=== PATIENT | male | born 1960 | race Hispanic/Latino ===

== ENCOUNTER 2016-02-17 08:38 | Day surgery (SDC) | payer OTHER ==
[~2016-02-17 08:38] MED LIST: ANCEF/STERILE WATER 2 GM/20 ML 20 ML IV NR; NACL 0.9% 1000 ML 1,000 ML IV SCH
[2016-02-17] MEDS ORDERED: BENADRYL IV ONE (09:23)
[2016-02-17] MEDS ORDERED: ZOFRAN IV ONE (09:25)
[2016-02-17 09:35] LABS: Hematocrit 33.8 % (35.5-45.6); Hemoglobin 11.4 gm/dl (11.8-15.2); Mean Corpuscular HGB Conc 34 % (32-34); Mean Corpuscular Hemoglobin 29 pg (28-32); Mean Corpuscular Volume 87 fl (84-94); Red Blood Count 3.89 M/mm3 (3.65-5.03); Red Cell Distribution Width 16.8 % (13.2-15.2); White Blood Count 2.9 K/mm3 (4.5-11.0)
[2016-02-17 09:36] LABS: Platelet Count 91 K/mm3 (140-440)
[2016-02-17 09:45] LABS: Anion Gap 14 mmol/L; Blood Urea Nitrogen 5 mg/dL (9-20); Calcium 8.8 mg/dL (8.4-10.2); Carbon Dioxide 25 mmol/L (22-30); Chloride 100.1 mmol/L (98-107); Glucose 133 mg/dL (75-100); Sodium 135 mmol/L (137-145)
[2016-02-17] MEDS ORDERED: FLAGYL 500 MG/100 ML 100 ML IV NR (10:00)
[2016-02-17] MEDS ORDERED: ANCEF/NS 1 GM/50 ML 50 ML IV NR (10:00)
[2016-02-17 10:17] LABS: INR 1.3 (0.87-1.13)
[2016-02-17 10:18] LABS: Partial Thromboplastin Time 30.6 Sec. (24.2-36.6)
[2016-02-17] MEDS ORDERED: ANCEF/STERILE WATER 2 GM/20 ML 20 ML IV ONE (11:14)
[2016-02-17] MEDS ORDERED: LEVAQUIN 500MG/100ML 100 ML IV ONE (11:14)
[2016-02-17] MEDS ORDERED: NACL 0.9% 1,500 ML IR ONE (11:32)
[2016-02-17] MEDS ORDERED: VERSED ONE ×2 (11:32→14:03)
[2016-02-17] MEDS ORDERED: XYLOCAINE 1%/ EPI 1:100,000 INFILTRATI ONE (11:32)
[2016-02-17] MEDS: SUBLIMAZE ONE ×2 (11:48→12:57)
[2016-02-17] MEDS: [UNRECOGNIZED DRUG - OTHER] INTRA-ARTE ONE ×2 (12:29→13:50)
[2016-02-17] MEDS ORDERED: SUBLIMAZE ONE (14:04)
--- NOTE | 2016-02-17 14:26 | Short Stay Summary ---
Short Stay Documentation Date of service: 02/17/16 Narrative H&P: HCC - History H&P: obtained from office - Allergies and Medications Current Medications: Allergies codeine Allergy (Verified 01/12/16 12:31) Hives tramadol Allergy (Verified 01/12/16 12:31) Hives Home Medications Medication Instructions Recorded Confirmed Last Taken Type Furosemide [Lasix TAB] 40 mg PO 3XW 11/17/15 02/17/16 1 Week Ago History LORazepam [LORazepam] 0.5 mg PO QHS PRN 11/17/15 02/17/16 1 Week Ago History Lidocaine/Prilocaine 1 inch TRANSDERMA 1XW 11/17/15 02/17/16 3 Weeks Ago History [Lidocaine-Prilocaine Cream] RX: Pantoprazole [Protonix TAB] 80 mg PO DAILY 11/17/15 02/17/16 02/16/16 History fentaNYL [fentaNYL] 25 mcg TRANSDERMA Q72HR 11/17/15 02/17/16 02/15/16 History Ondansetron [Zofran Odt] 4 mg PO Q8HR PRN #30 tab.rapdis 01/13/16 02/17/16 Unknown Rx Promethazine [Phenergan] 25 mg RI Q6HR PRN #20 supp.rect 01/13/16 02/17/16 Unknown Rx RX: oxyCODONE [Roxicodone TAB] 10 mg PO Q4-6H PRN 01/26/16 02/17/16 02/17/16 10: 02 History Active Medications Sodium Chloride (Nacl 0.9% 1000 Ml) 1,000 mls @ 200 mls/hr IV DIRECT ADRIAN Last Admin: 02/17/16 10:09 Dose: 200 mls/hr Cefazolin Sodium (Ancef/Ns 1 Gm/50 Ml) 50 mls @ 100 mls/hr IV PREOP NR PRN Reason: Protocol Stop: 02/17/16 23:59 - Physical exam General appearance: no acute distress Lungs: Normal air movement - Brief post op/procedure progress note Date of procedure: 02/17/16 Pre-op diagnosis: HCC Post-op diagnosis: same Procedure: SANTI TACE Anesthesia: local (w/ conscious sedation) Surgeon: KONSTANTIN JERRY Estimated blood loss: minimal Condition: stable - Hospital course Hospital course: No issues from procedure. Will be ready to discharge in 2 hrs. - Disposition Condition at discharge: Stable Disposition: DISCHARGED TO HOME OR SELFCARE - Discharge Diagnoses (1) Cirrhosis of liver Status: Acute (2) Hepatocellular carcinoma Status: Acute Short Stay Discharge Plan Activity: advance as tolerated Weight Bearing Status: Weight Bear as Tolerated Diet: regular Wound: keep clean and dry
--- NOTE | 2016-02-17 14:37 | Operative Report ---
Operative Report Operative Report: EXAM: 1. Ultrasound-guided access of the right common femoral artery 2. Angiography of the right lower extremity 3. Selection of the common hepatic artery with angiography 4. Selection of the left hepatic artery with angiography 5. Superselective selection of the distal left hepatic artery 6. Superselective selection of the left hepatic artery from segment 4B feeding the hepatocellular carcinoma 7. Intra-arterial chemoembolization of the hepatocellular carcinoma arising from segment 4B with three fourths of a vial of 100 to 300 LC beads loaded with doxorubicin 8. Selection of the gastroduodenal artery with angiography 9. Selection of the right gastroepipoloic artery with angiography 10 Superselection of a tumor artery arising from the right gastroepiploic artery with angiography 11. Intra-arterial chemoembolization of the hepatocellular carcinoma arising from the branch of the right gastroepiploic artery with one fourths of a vial of 100 to 300 LC beads loaded with doxorubicin 12. Postembolization angiography 13. Closure of the right common femoral artery with a 6 [place] Perclose device. DATE: 02/17/16 HOTEL BAGGAGE HANDLER: KONSTANTIN JERRY MD INDICATION: 55-year-old male with cirrhosis and hepatocellular carcinoma who presents for palliative chemoembolization. MEDICATIONS: Please see nursing report for full details. DEVICES: One vial of 100 to 300 LC beads loaded with 50 mg of doxorubicin CONTRAST: Please see ammunition assembly ii laborer report for full details. PROCEDURE: The risks, benefits, and alternatives were discussed with the patient and his family; written informed consent was obtained. The patient was brought to the angiography suite in stable condition. Patient was prepped and draped in sterile fashion. The right common femoral artery was of evaluated with ultrasound and was patent. Under direct ultrasound guidance, a 21-gauge micropuncture needle was used to access the right common femoral artery. 0.018 inch wire was passed into the aorta. Needle was exchanged for a transitional dilator. Wire was exchanged for a 0.035 inch Seo wire. Transitional dilator was exchanged for a 5 [place] sheath. Digital subtraction angiography was performed through the sheath demonstrating an appropriate puncture site, above the bifurcation and below the inferior epigastric artery. The right external iliac artery, right common femoral artery , and proximal right profunda femoral artery and superficial femoral artery were normal in appearance. Omni flush catheter was then used to select the left common iliac artery and wire was passed into the left superficial femoral artery. Catheter was exchanged for SIM 1 glide catheter which was formed over the aortoiliac bifurcation. Catheter was then used to select celiac artery, and then to select the common hepatic artery. Digital subtraction angiography was performed from the common hepatic artery demonstrating normal branching pattern of the hepatic arteries except for clipping of the cystic artery. There was extensive neovascularity overlying part of the liver. This corresponded to the tumor blush. This is compatible with patient's known hepatocellular carcinoma. [place] microcatheter was then coaxially advanced through the base catheter with the assistance of a choice PT floppy wire. Wire was used to select the left hepatic artery. Digital subtraction angiography was performed demonstrating tumor vessels arising from segment 4B of the liver. The distal left hepatic artery along a horizontal portion of the vessel was selected. Digital subtraction angiography was performed. Wire was then used to select the tumor vessel. Digital subtraction angiography was performed. Three quarters of a vial of LC beads was then administered under fluoroscopic guidance. Microcatheter was flushed. I then tried to select a vessel it was more proximal which may also be providing flow to the tumor, but this was not possible. Multiple wires were attempted. Afterwards, microcatheter was retracted into the common hepatic artery. Wire was used to select the gastroduodenal artery and digital subtraction angiography was performed demonstrating position in the distal gastroduodenal artery with the right gastroepiploic artery and the superior pancreaticoduodenal artery. Wire was used to select the right gastroepipoloic artery. Digital subtraction angiography was performed confirming neovascularity arising from the right gastroepiploic artery providing tumor blush. I then selected the distal vessel arising from the gastroduodenal artery with a transcend wire and passed the microcatheter over the wire into a distal branch of the gastroepiploic artery. Digital subtraction angiography was performed. I was unsure if this was a tumor vessel or was flow into the distal stomach and decided not to treat this vessel at this time. I then selected the proximal vessel arising from the gastroduodenal artery and a transcend wire and passed the microcatheter over the wire into the proximal branch of the gastroduodenal artery. Digital subtraction angiography was performed. Tumor blush and tumor vessel was visualized. One quarter of a vial of LC beads was then administered under fluoroscopic guidance. Angiography was performed demonstrating stasis of this vessel. Microcatheter was removed and placed the chemotherapy bucket. The base catheter was then double flushed. Digital subtraction angiography was performed demonstrating no further tumor blush from segment IVB. The gastroduodenal and gastroepiploic artery was not well visualized due to the catheter flipping into the splenic artery. Due to the amount of contrast and fluoroscopy time, I decided to not attempt further visualization of the gastroepiploic vessel. Base catheter is removed over a Seo wire. Devices which touched chemotherapy were then placed in the chemotherapy bucket, appropriately. Gloves were changed and the prior gloves were appropriately disposed of. Seo wire was then advanced through the sheath and the right common femoral artery was closed using a 6 [place] Perclose device with near immediate hemostasis achieved. Dermabond applied. Sterile dressing and pressure dressing applied. Patient tolerated the procedure well. He was transported to the recovery area in stable condition. FINDINGS: Please see procedure note above. IMPRESSION: Successful chemoembolization of hepatocellular carcinoma without immediate postprocedural complication.
[2016-02-17 16:20] VITALS: BP 118/63
--- NOTE | 2016-02-17 17:18 | Vascular Lab Report ---
MISCELLANEOUS VESSEL IDENTIFICATION: COMMENTS ON THE SCAN: The right common femoral artery was identified and under real-time ultrasound guidance was cannulated. IMPRESSION: Successful ultrasound guided arterial cannulation.
== END 2016-02-17 16:45 | disposition home or self-care (01) ==
LOC: OPU 08:38 → CATH 08:38 → OPU 16:45
PROVIDERS: ATTEND Radiology Diagnostic Radiology
DX: C22.7 Other specified carcinomas of liver (principal); K74.60 Unspecified cirrhosis of liver; Z86.73 Personal history of transient ischemic attack (TIA), and cerebral infarction without residual deficits; Z87.01 Personal history of pneumonia (recurrent); Z85.850 Personal history of malignant neoplasm of thyroid; Z90.49 Acquired absence of other specified parts of digestive tract; Z98.890 Other specified postprocedural states; Z83.3 Family history of diabetes mellitus; Z80.9 Family history of malignant neoplasm, unspecified; Z82.49 Family history of ischemic heart disease and other diseases of the circulatory system
CPT/HCPCS: 36245; 36247; 36248; 36415; 37243; 75726; 75774; 76937; 80048; 85027; 85610; 85730; 96365; 96375; 96420; C1760; C1769; J0690; J1200; J1956; J2250; J2405; J3010; J7030; J9000; Q9967; 36246; 96360; 96361; 96374